=== PATIENT | male | born 1950 | race Two or more races ===

== ENCOUNTER 2021-10-18 12:16 | Inpatient (IN) | payer OTHER ==
[~2021-10-18] VITALS: Ht 165.1 cm; Wt 86.2 kg
[2021-10-18] MEDS ORDERED: XARELTO20 MG PO (12:49)
[2021-10-18] MEDS ORDERED: PRINIVIL20 MG PO (12:49)
[2021-10-18] MEDS ORDERED: LOPRESSOR25 MG PO (12:49)
[2021-10-18] MEDS ORDERED: NEURONTIN300 MG PO (12:50)
[2021-10-18] MEDS ORDERED: LIPITOR40 M1 PO (12:50)
[2021-10-18] MEDS ORDERED: BUSPIRONE HCL30 MG PO (12:51)
[2021-10-18] MEDS ORDERED: NAMENDA10 MG PO (12:51)
[2021-10-18] MEDS ORDERED: ATIVAN0.5 M1 PO (12:52)
--- NOTE | 2021-10-18 13:04 | NUR ---
SE RECIBE PT MASCULINO DE 70 ANOS NO ESTA ALERTA Y ESTA INCONCIENTE. ACOMPANADO POR FAMILIAR QUIEN INDICA QUE MIENTRAS ESTABA EN YENIFER ZOE MEDICA EL PT DESMALLA. SE LEON S/V Y NO SE LOGRA ENCONTRAR PRECION SANGUNEA MANUAL O AUTOMATICA SE RACHEL EKG Y SE MUESTRA A DR. PEDRAZA QUIEN INDICA PASARLO A AREA DE CHEST PAIN. PT SSE UBICA EN CHEST PAIN.
--- NOTE | 2021-10-18 13:38 | NUR ---
PTE LETARGICO,NO RESPONDE NI ABRE LOS OJOS.SE LE LEON MUESTARS DE AMAYA Y SE LE ADMINISTRA MEDICAMENTO SHARAD ORDEN MEDICA.SE MANTIENE EN LA UNIDAD DE CHEST PAIN.
--- NOTE | 2021-10-18 16:35 | NUR ---
SE RECIBRE PTE EN LA UNIDAD DE CENTRO DE DOLOR DE PECHO EN EL CUBICULO #18 EN CAMA CON BARANDAS ELEVADA Y TIMBRE ACCESIBLE, PTE NO PRESNETA DOLOR AL MOMETO, PTE ALERTA Y ORIENTADO POR 3 PTE SE MANTIENE EN OBSERVACION Y BAJO TRATAMIENTO POR CAMBIOS PTE EN ESPERA DE REVALUACION. PTE CON MARIZOL GUERREROANDO NOEMINA DE COLOR AMARILLO
--- NOTE | 2021-10-18 16:39 | NUR ---
SE RECIBRE PTE EN LA UNIDAD DE CENTRO DE DOLOR DE PECHO EN EL CUBICULO #18 EN CAMA CON BARANDAS ELEVADA Y TIMBRE ACCESIBLE, PTE NO PRESNETA DOLOR AL MOMETO, PTE ALERTA AL EN PERSONA, PTE SE MANTIENE EN OBSERVACION Y BAJO TRATAMIENTO POR CAMBIOS PTE EN ESPERA DE REVALUACION. PTE CON MARIZOL GUERREROANDO SOFI DE COLOR AMARILLO
== END 2021-11-06 13:30 | DRG 854 ==
LOC: ER 12:16 → ICU-2 10-19 00:34 → MEDJ 10-19 00:34 → SEC-K 10-25 10:48 → MEDJ 10-25 10:57
PROVIDERS: Surgery; Urology; ADMIT Internal Medicine; ATTEND Internal Medicine
PROC: BW24ZZZ Computerized Tomography (CT Scan) of Chest and Abdomen (ICD-10-PCS; 2021-10-20)
PROC: 02HV33Z Insertion of Infusion Device into Superior Vena Cava, Percutaneous Approach (ICD-10-PCS; 2021-10-23)
PROC: 4A12X4Z Monitoring of Cardiac Electrical Activity, External Approach (ICD-10-PCS; 2021-10-25)
PROC: B24BZZZ Ultrasonography of Heart with Aorta (ICD-10-PCS; 2021-10-29)
PROC: 0YU54JZ Supplement Right Inguinal Region with Synthetic Substitute, Percutaneous Endoscopic Approach (ICD-10-PCS; 2021-11-03)
PROC: 0VT08ZZ Resection of Prostate, Via Natural or Artificial Opening Endoscopic (ICD-10-PCS; principal; 2021-11-03 13:00)
PROC: 0YQ54ZZ Repair Right Inguinal Region, Percutaneous Endoscopic Approach (ICD-10-PCS; 2021-11-03 13:00)
DX: A41.9 Sepsis, unspecified organism (principal); N39.0 Urinary tract infection, site not specified; N17.8 Other acute kidney failure; E87.0 Hyperosmolality and hypernatremia; N13.8 Other obstructive and reflux uropathy; K40.90 Unilateral inguinal hernia, without obstruction or gangrene, not specified as recurrent; N40.1 Benign prostatic hyperplasia with lower urinary tract symptoms; E86.0 Dehydration; R33.8 Other retention of urine; R31.9 Hematuria, unspecified; G30.8 Other Alzheimer's disease; F02.80 Dementia in other diseases classified elsewhere, unspecified severity, without behavioral disturbance, psychotic disturbance, mood disturbance, and anxiety; I48.0 Paroxysmal atrial fibrillation; Z79.01 Long term (current) use of anticoagulants; Z74.01 Bed confinement status; Z20.822 Contact with and (suspected) exposure to COVID-19

== ENCOUNTER 2021-11-09 15:22 | Emergency (ER) | payer OTHER ==
[~2021-11-09] VITALS: Ht 160 cm; Wt 81.6 kg
[~2021-11-09 15:22] MED LIST: ATIVAN0.5 M1 PO; BUSPIRONE HCL30 MG PO; LIPITOR40 M1 PO; LOPRESSOR25 MG PO; NAMENDA10 MG PO; NEURONTIN300 MG PO; PRINIVIL20 MG PO; XARELTO20 MG PO
== END 2021-11-09 16:25 | disposition home or self-care (01) ==
LOC: ER 15:22
DX: Z45.2 Encounter for adjustment and management of vascular access device (principal); G30.9 Alzheimer's disease, unspecified; F02.80 Dementia in other diseases classified elsewhere, unspecified severity, without behavioral disturbance, psychotic disturbance, mood disturbance, and anxiety; Z91.041 Radiographic dye allergy status; Z91.013 Allergy to seafood; Z79.01 Long term (current) use of anticoagulants; I10 Essential (primary) hypertension

== ENCOUNTER 2021-12-20 15:35 | Inpatient (IN) | payer OTHER ==
[~2021-12-20] VITALS: Ht 170.2 cm; Wt 90.7 kg
[2021-12-20] MEDS ORDERED: TAMS0.4C PO (15:51)
[2021-12-20] MEDS ORDERED: PROSCAR5 MG PO (15:51)
[2021-12-20] MEDS ORDERED: PEPCID40 MG PO (15:51)
[2021-12-20] MEDS ORDERED: NORVASC10 MG PO (15:51)
[2021-12-20] MEDS ORDERED: ELIQUIS5 MG PO (15:52)
[2021-12-21] MEDS ORDERED: METOPROLOL SUCC50 MG (11:17)
[2021-12-21] MEDS ORDERED: INTESTINEX680 M1 (11:17)
[2021-12-21] MEDS ORDERED: LISINOPRIL-HCT1 EAC1 (11:18)
== END 2022-01-02 14:32 | disposition home or self-care (01) | DRG 690 ==
LOC: ER 15:35 → MEDI 23:01 → MEDJ 23:01 → MEDI 12-21 04:20
PROVIDERS: ADMIT Internal Medicine; ATTEND Internal Medicine
DX: N39.0 Urinary tract infection, site not specified (principal); R31.0 Gross hematuria; I10 Essential (primary) hypertension; I48.0 Paroxysmal atrial fibrillation; G30.8 Other Alzheimer's disease; F02.80 Dementia in other diseases classified elsewhere, unspecified severity, without behavioral disturbance, psychotic disturbance, mood disturbance, and anxiety; B37.9 Candidiasis, unspecified; K59.09 Other constipation; E87.6 Hypokalemia; Z20.822 Contact with and (suspected) exposure to COVID-19

== ENCOUNTER 2022-01-20 15:17 | Outpatient (CLI) | payer OTHER ==
[~2022-01-20 15:17] MED LIST changes: +ELIQUIS5 MG PO; +INTESTINEX680 M1; +LISINOPRIL-HCT1 EAC1; +METOPROLOL SUCC50 MG; +NORVASC10 MG PO; +PEPCID40 MG PO; +PROSCAR5 MG PO; +TAMS0.4C PO
== END 2022-01-20 15:24 | disposition home or self-care (01) ==
LOC: LAB 15:17
PROVIDERS: ATTEND Urology
DX: N30.00 Acute cystitis without hematuria (principal)

== ENCOUNTER 2022-02-25 15:06 | Inpatient (IN) | payer OTHER ==
[~2022-02-25] VITALS: Ht 160 cm; Wt 72.6 kg
--- NOTE | 2022-02-25 15:44 | NUR ---
PACIENTE ALERTA Y ORIENTADO EN PERSONA Y LUGAR. SE RECIBE PACIENTE EN AMBULANCIA DE EL HOGAR. FAMILIAR REFIERE TRAER AL PACIENTE POR PROBLEMAS URINARIOS, FIEBRE Y DEBILIDAD. PACIENTE TIENE SONDA URINARIA ELIMINANDO ORINA COLOR AMARILLO INTENSO. PACIENTE TIENE BOLSA DE IRRIGACION. PACIENTE AL MOMENTO NO PRESENTA TEMPERATURA ELEVADA.
--- NOTE | 2022-02-25 17:41 | NUR ---
PACIENTE ALERTA Y ORIENTADO EN PERSONA Y LUGAR. MISS. RAMIREZ ORIENTA A PACIENTE SOBRE PROCEDIMIENTO A REALIZAR A FAMILIAR Y REFIRIO ENTENDER. REALIZA MUESTRAS DE LABORATORIO BAJO MEDIDAS ASEPTICAS. LE REALIZARON PLACA DE PECHO ORDENADA POR
--- NOTE | 2022-02-26 00:06 | NUR ---
SE RECIBE PTE DEL TURNO ANTERIOR, ALERTA, UBICADO EN JUSTIN NIVEL MAS BAJO, PIERRE DE IDENTIFICACION Y BARANDAS ELEVADAS POR PRECAUCION, EN COMPANIA DE FAMILIAR. SE OBSERVA CON BUEN PATRON RESPIRATORIO Y PIEL TIBIA AL TACTO. IV PATENTE Y NANNETTE DE EDEMA O ERITEMA CON 0.9% NSS @100ML/HR. PTE CON FONTANA CON FECHA DE 02/24/22 #16 CON EGRESO APROXIMADO DE 700ML COLOR TAYLOR TURBIO. PENDIENTE CONSULTA CON DRA Shweta MOODY. SE MANTIENE BAJO OBSERVACION.
[2022-03-01] MEDS ORDERED: ELIQUIS5 MG (10:22)
== END 2022-03-07 17:27 | disposition home or self-care (01) | DRG 690 ==
LOC: ER 15:06 → MEDI 02-26 07:45
PROVIDERS: ADMIT Internal Medicine; ATTEND Internal Medicine
PROC: BW21YZZ Computerized Tomography (CT Scan) of Abdomen and Pelvis using Other Contrast (ICD-10-PCS; principal; 2022-02-26)
PROC: 02HV33Z Insertion of Infusion Device into Superior Vena Cava, Percutaneous Approach (ICD-10-PCS; 2022-02-27)
DX: N39.0 Urinary tract infection, site not specified (principal); B96.4 Proteus (mirabilis) (morganii) as the cause of diseases classified elsewhere; G30.8 Other Alzheimer's disease; N13.9 Obstructive and reflux uropathy, unspecified; F02.80 Dementia in other diseases classified elsewhere, unspecified severity, without behavioral disturbance, psychotic disturbance, mood disturbance, and anxiety; I10 Essential (primary) hypertension; I48.0 Paroxysmal atrial fibrillation; K40.90 Unilateral inguinal hernia, without obstruction or gangrene, not specified as recurrent; Z20.822 Contact with and (suspected) exposure to COVID-19

== ENCOUNTER 2023-05-18 15:54 | Outpatient (CLI) | payer OTHER ==
[~2023-05-18 15:54] MED LIST changes: +ELIQUIS5 MG
== END 2023-05-18 15:56 | disposition home or self-care (01) ==
LOC: LAB 15:54
PROVIDERS: ATTEND Urology
DX: N39.0 Urinary tract infection, site not specified (principal)

== ENCOUNTER 2023-06-26 13:35 | Outpatient (CLI) | payer OTHER ==
[2023-06-26 14:38] LABS: HEMATOCRIT 42.9 % (39.0-48.0); HEMOGLOBIN 14.5 g/dL (13-16.00); MEAN CELL VOLUME 92.3 fL (80.0-100.00); MEAN CORPUSCULAR HEMOGLOBIN 31.3 pg (27.00-32.0); MEAN CORPUSCULAR HGB CONC 33.9 g/dl (32.0-36.0); PLATELET COUNT 186 K/uL (150-450); RED BLOOD COUNT 4.65 M/uL (4.00-6.00); RED CELL DISTRIBUTION WIDTH 13.9 % (11.5-14.5)
[2023-06-26 14:43] LABS: PH,URINE 5.5 (5.0-8.0); URINE APPEARANCE Cloudy; URINE BILIRRUBIN Negative (NEGATIVE); URINE BLOOD Large; URINE COLOR Dark Yellow; URINE GLUCOSE Negative (NEGATIVE); URINE LEUKOCYTE Small; URINE NITRATE Negative
[2023-06-26 14:46] LABS: URINE EPITHELIAL CELLS 59.6 uL (0.0-38.8); URINE RBC 2737.5 uL (0.0-20.8); URINE WBC 167.6 uL (0.0-23.2)
[2023-06-26 14:58] LABS: URINE PROTEIN 100 (NEGATIVE)
== END 2023-06-26 13:46 | disposition home or self-care (01) ==
LOC: LAB 13:35
PROVIDERS: ATTEND Urology
DX: D62 Acute posthemorrhagic anemia (principal); Z91.013 Allergy to seafood; Z91.041 Radiographic dye allergy status

== ENCOUNTER 2025-02-24 16:03 | Inpatient (IN) | payer OTHER ==
[~2025-02-24] VITALS: Ht 167.6 cm; Wt 68.0 kg
[2025-02-24] MEDS ORDERED: CEFTRIAXONE SODIUM 1,000 MG VIAL ONE (16:43)
[2025-02-24] MEDS ORDERED: CEFTRIAXONE SODIUM 1,000 MG VIAL IV ONE (16:45)
[2025-02-24 17:17] LABS: BASO % 0.2 % (0.1-1.2); EOS # 0.01 (0.04-0.54); EOS % 0.1 % (0.7-7.0); HEMATOCRIT 40.8 % (40.1-51.0); HEMOGLOBIN 13.8 g/dL (13.7-17.5); LYMPH # 0.95 (1.18-3.74); LYMPH % 10.1 % (19.3-53.1); MEAN CORPUSCULAR HEMOGLOBIN 30.9 pg (25.6-32.2); MONO # 0.93 (0.24-0.82); MONO % 9.9 % (4.7-12.5); NEUT # 7.47 (1.56-6.13); NEUT % 79.3 % (34.0-71.1); PLATELET COUNT 167 K/uL (163-369); RED BLOOD COUNT 4.47 M/uL (4.63-6.08); RED CELL DISTRIBUTION WIDTH 13.7 % (11.6-14.4)
[2025-02-24 17:24] LABS: POTASSIUM 3.79 mEq/L (3.5-5.1)
[2025-02-24 17:33] LABS: ALBUMIN 3.7 gm/dL (3.4-5.0); BILIRUBIN TOTAL 0.62 mg/dL (0.3-1.2); CALCIUM 8.4 mg/dL (8.5-10.1); CREATININE SERUM 1.11 mg/dL (0.70-1.30); GFR 64.58; TOTAL PROTEIN 7.7 gm/dL (6.4-8.2)
[2025-02-24 17:51] LABS: INFLUENZA A AG NEGATIVE (NEGATIVE); INFLUENZA B AG NEGATIVE (NEGATIVE)
[2025-02-24 17:52] LABS: COVID-19 AG POSITIVE (NEGATIVE)
[2025-02-24 19:45] LABS: PH,URINE 7.5 (5.0-8.0); URINE APPEARANCE Clear; URINE BILIRRUBIN Negative (NEGATIVE); URINE COLOR Yellow; URINE GLUCOSE Negative (NEGATIVE); URINE KETONE Negative (NEGATIVE); URINE LEUKOCYTE Small; URINE NITRATE Positive; URINE PROTEIN 30 (NEGATIVE)
[2025-02-24 19:49] LABS: URINE BACTERIA 327.9 uL (0.0-1933); URINE RBC 32.8 uL (0.0-20.8); URINE WBC 35.1 uL (0.0-23.2)
[2025-02-24 20:08] LABS: URINE BLOOD TRACE; URINE CAST 0.44 uL (0.0-1.40)
[2025-02-24] MEDS ORDERED: AMLODIPINE BESYLATE 10 MG TABLET PO SCH (20:51)
[2025-02-24] MEDS ORDERED: CEFTRIAXONE SODIUM 2,000 MG in 0.9 % SODIUM CHLORIDE 100 ML IV SCH (20:51)
[2025-02-24] MEDS ORDERED: 0.9 % SODIUM CHLORIDE 1,000 ML IV SCH (21:00)
[2025-02-24] MEDS ORDERED: ACETAMINOPHEN 500 MG GEL..CAP PO PRN (21:00)
[2025-02-24] MEDS ORDERED: CEFTRIAXONE SODIUM 2,000 MG VIAL ONE (21:28)
[2025-02-24 22:32] LABS: INR 1.09; PARTIAL THROMBOPLASTIN TIME 26.9 SECONDS (22.0-34.0); PROTHROMBIN TIME 11.8 SECONDS (9.0-11.5)
[2025-02-24 22:45] LABS: C-REACTIVE PROTEIN 1.24 MG/DL (0.00-0.29)
[2025-02-25 00:12] VITALS: BP 144/68; O2SAT 97
[2025-02-25 08:11] VITALS: BP 109/62; O2SAT 92
[2025-02-25] MEDS ORDERED: ENOXAPARIN SODIUM 40 MG/0.4 ML SYRINGE SUBCUTANEO SCH (09:00)
[2025-02-25] MEDS ORDERED: MEMANTINE HCL 10 MG TABLET PO SCH (09:00)
[2025-02-25] MEDS ORDERED: BUSPIRONE HCL 15 MG TABLET PO SCH (09:00)
[2025-02-25] MEDS ORDERED: FINASTERIDE 5 MG TABLET PO SCH (09:00)
[2025-02-25] MEDS ORDERED: TAMSULOSIN HCL 0.4 MG CAP PO SCH (09:00)
[2025-02-25] MEDS ORDERED: METOPROLOL SUCCINATE 50 MG TAB.SR.24H PO SCH (09:00)
[2025-02-25] MEDS ORDERED: FAMOTIDINE/PF 20 MG in 0.9 % SODIUM CHLORIDE 8 ML IV PUSH SCH (09:00)
[2025-02-25] MEDS ORDERED: GUAIFENESIN 200 MG/10 ML BLIST.PACK PO SCH (16:00)
[2025-02-25] MEDS ORDERED: SODIUM CHLORIDE FOR INHALATION 1 VIAL.NEB IH SCH (17:00)
[2025-02-25] MEDS ORDERED: DEXAMETHASONE SODIUM PHOSPHATE 4 MG/ML VIAL IV SCH (17:00)
[2025-02-25 17:24] VITALS: BP 128/68; O2SAT 97
[2025-02-25] MEDS ORDERED: MEROPENEM 500 MG/VIAL VIAL IV SCH (18:00)
[2025-02-26 02:49] VITALS: BP 145/76; O2SAT 93
[2025-02-26 08:56] VITALS: BP 130/67; O2SAT 98
[2025-02-26] MEDS ORDERED: POLYETHYLENE GLYCOL 3350 17 GM BLIST.PACK PO SCH (09:00)
[2025-02-26 09:27] LABS: ABG pCO2 32.8 mmHg (35-45); BASE EXCESS -0.8 mmol/l; BICARBONATE 22.3 mmol/l (23-25); SaO2 95.4 %; Tco2 23.3 mmol/l
[2025-02-26 11:28] LABS: allen test SATISFACTORY; mode ROOM AIR; o2 21 %; puncture site RADIAL LEFT
[2025-02-26 11:50] LABS: BASO % 0.1 % (0.1-1.2); HEMATOCRIT 41.2 % (40.1-51.0); HEMOGLOBIN 14.2 g/dL (13.7-17.5); LYMPH # 1.15 (1.18-3.74); LYMPH % 9.1 % (19.3-53.1); MEAN CORPUSCULAR HEMOGLOBIN 31.3 pg (25.6-32.2); MONO # 1.08 (0.24-0.82); MONO % 8.5 % (4.7-12.5); NEUT # 10.41 (1.56-6.13); NEUT % 81.9 % (34.0-71.1); PLATELET COUNT 168 K/uL (163-369); RED BLOOD COUNT 4.54 M/uL (4.63-6.08); RED CELL DISTRIBUTION WIDTH 13.3 % (11.6-14.4)
[2025-02-26 13:19] LABS: BILIRUBIN TOTAL 0.75 mg/dL (0.3-1.2); CALCIUM 8.4 mg/dL (8.5-10.1); CREATININE SERUM 0.89 mg/dL (0.70-1.30); FERRITIN 240.9 NG/ML (26-388); GFR 83.33; GLOBULINA 3.7 G/DL (2.4-3.5); POTASSIUM 3.67 mEq/L (3.5-5.1); TOTAL PROTEIN 6.7 gm/dL (6.4-8.2)
[2025-02-26 13:20] LABS: C-REACTIVE PROTEIN 8.54 MG/DL (0.00-0.29)
[2025-02-26 13:35] LABS: MYCOPLASMA PNEUMONIAE IGM NON REACTIVE (NO REACTIVE)
[2025-02-26 17:02] LABS: INR 1.06; PARTIAL THROMBOPLASTIN TIME 32.9 SECONDS (22.0-34.0); PROTHROMBIN TIME 11.5 SECONDS (9.0-11.5)
[2025-02-26 17:05] VITALS: BP 108/64; O2SAT 98
[2025-02-27 02:19] VITALS: BP 115/42; O2SAT 93
[2025-02-27 05:28] LABS: BASO % 0.1 % (0.1-1.2); HEMATOCRIT 38.5 % (40.1-51.0); LYMPH # 0.82 (1.18-3.74); LYMPH % 5.7 % (19.3-53.1); MEAN CORPUSCULAR HEMOGLOBIN 30.8 pg (25.6-32.2); MONO # 0.51 (0.24-0.82); MONO % 3.5 % (4.7-12.5); NEUT # 13.06 (1.56-6.13); NEUT % 90.4 % (34.0-71.1); PLATELET COUNT 166 K/uL (163-369); RED BLOOD COUNT 4.32 M/uL (4.63-6.08); RED CELL DISTRIBUTION WIDTH 13.2 % (11.6-14.4)
[2025-02-27 05:37] LABS: HEMOGLOBIN 13.3 g/dL (13.7-17.5)
[2025-02-27 05:57] LABS: ALBUMIN 2.7 gm/dL (3.4-5.0); BILIRUBIN TOTAL 0.46 mg/dL (0.3-1.2); CALCIUM 8.4 mg/dL (8.5-10.1); CREATININE SERUM 0.94 mg/dL (0.70-1.30); GFR 78.23; GLOBULINA 3.5 G/DL (2.4-3.5); POTASSIUM 4.16 mEq/L (3.5-5.1); TOTAL PROTEIN 6.2 gm/dL (6.4-8.2)
[2025-02-27 08:52] VITALS: BP 116/72
[2025-02-27 17:51] VITALS: BP 111/65; O2SAT 96
[2025-02-28 02:50] VITALS: BP 131/79; O2SAT 94
[2025-02-28 05:10] LABS: BASO % 0.1 % (0.1-1.2); HEMATOCRIT 39.4 % (40.1-51.0); HEMOGLOBIN 13.4 g/dL (13.7-17.5); LYMPH # 0.93 (1.18-3.74); LYMPH % 6.2 % (19.3-53.1); MEAN CORPUSCULAR HEMOGLOBIN 30.3 pg (25.6-32.2); MONO # 0.64 (0.24-0.82); MONO % 4.3 % (4.7-12.5); NEUT # 13.35 (1.56-6.13); NEUT % 88.9 % (34.0-71.1); PLATELET COUNT 182 K/uL (163-369); RED BLOOD COUNT 4.42 M/uL (4.63-6.08); RED CELL DISTRIBUTION WIDTH 13.3 % (11.6-14.4)
[2025-02-28 05:55] LABS: ALBUMIN 2.9 gm/dL (3.4-5.0); BILIRUBIN TOTAL 0.53 mg/dL (0.3-1.2); CALCIUM 8.3 mg/dL (8.5-10.1); CREATININE SERUM 0.76 mg/dL (0.70-1.30); FERRITIN 199.9 NG/ML (26-388); GFR 99.98; GLOBULINA 3.6 G/DL (2.4-3.5); POTASSIUM 4.17 mEq/L (3.5-5.1); TOTAL PROTEIN 6.5 gm/dL (6.4-8.2)
[2025-02-28 05:56] LABS: C-REACTIVE PROTEIN 1.78 MG/DL (0.00-0.29)
[2025-02-28 09:15] VITALS: BP 127/74; O2SAT 94
[2025-02-28 17:14] VITALS: BP 132/70; O2SAT 96
[2025-03-01 02:21] VITALS: BP 130/74; O2SAT 93
[2025-03-01 08:08] LABS: BASO % 0.1 % (0.1-1.2); EOS # 0.04 (0.04-0.54); EOS % 0.4 % (0.7-7.0); HEMATOCRIT 41.8 % (40.1-51.0); HEMOGLOBIN 14.1 g/dL (13.7-17.5); LYMPH # 1.88 (1.18-3.74); LYMPH % 16.8 % (19.3-53.1); MEAN CORPUSCULAR HEMOGLOBIN 31.1 pg (25.6-32.2); MONO # 1.01 (0.24-0.82); NEUT # 8.17 (1.56-6.13); NEUT % 73.1 % (34.0-71.1); PLATELET COUNT 184 K/uL (163-369); RED BLOOD COUNT 4.54 M/uL (4.63-6.08); RED CELL DISTRIBUTION WIDTH 13.4 % (11.6-14.4)
[2025-03-01 08:25] LABS: BILIRUBIN TOTAL 0.65 mg/dL (0.3-1.2); CALCIUM 8.5 mg/dL (8.5-10.1); CREATININE SERUM 0.81 mg/dL (0.70-1.30); GFR 92.9; GLOBULINA 3.6 G/DL (2.4-3.5); POTASSIUM 4.46 mEq/L (3.5-5.1); TOTAL PROTEIN 6.6 gm/dL (6.4-8.2)
[2025-03-01 08:30] LABS: FERRITIN 182.4 NG/ML (26-388)
[2025-03-01 08:32] LABS: C-REACTIVE PROTEIN 0.91 MG/DL (0.00-0.29)
[2025-03-01 09:06] VITALS: BP 170/68; O2SAT 91
[2025-03-01 09:59] VITALS: O2SAT 97
[2025-03-01 17:32] VITALS: BP 116/66; O2SAT 95
[2025-03-02 00:41] VITALS: BP 118/74
[2025-03-02 07:47] LABS: ALBUMIN 2.8 gm/dL (3.4-5.0); BILIRUBIN TOTAL 0.55 mg/dL (0.3-1.2); CALCIUM 8.5 mg/dL (8.5-10.1); CREATININE SERUM 0.84 mg/dL (0.70-1.30); FERRITIN 188.8 NG/ML (26-388); GFR 89.08; GLOBULINA 3.4 G/DL (2.4-3.5); POTASSIUM 4.54 mEq/L (3.5-5.1); TOTAL PROTEIN 6.2 gm/dL (6.4-8.2)
[2025-03-02 07:51] LABS: C-REACTIVE PROTEIN 0.64 MG/DL (0.00-0.29)
[2025-03-02 08:14] LABS: BASO % 0.3 % (0.1-1.2); EOS # 0.16 (0.04-0.54); EOS % 1.3 % (0.7-7.0); HEMATOCRIT 44.9 % (40.1-51.0); LYMPH # 1.67 (1.18-3.74); LYMPH % 14.1 % (19.3-53.1); MEAN CORPUSCULAR HEMOGLOBIN 30.7 pg (25.6-32.2); MONO # 0.87 (0.24-0.82); MONO % 7.3 % (4.7-12.5); NEUT # 9.04 (1.56-6.13); NEUT % 76.1 % (34.0-71.1); PLATELET COUNT 232 K/uL (163-369); RED BLOOD COUNT 4.89 M/uL (4.63-6.08); RED CELL DISTRIBUTION WIDTH 13.5 % (11.6-14.4)
[2025-03-02 10:12] VITALS: BP 137/85; O2SAT 98
[2025-03-02 17:50] VITALS: BP 106/61; O2SAT 98
[2025-03-03 00:47] VITALS: BP 109/68
[2025-03-03 06:15] LABS: BASO % 0.2 % (0.1-1.2); EOS # 0.27 (0.04-0.54); EOS % 2.2 % (0.7-7.0); HEMATOCRIT 43.5 % (40.1-51.0); HEMOGLOBIN 14.4 g/dL (13.7-17.5); LYMPH # 2.03 (1.18-3.74); LYMPH % 16.4 % (19.3-53.1); MEAN CORPUSCULAR HEMOGLOBIN 30.5 pg (25.6-32.2); MONO # 0.84 (0.24-0.82); MONO % 6.8 % (4.7-12.5); NEUT # 8.99 (1.56-6.13); NEUT % 72.8 % (34.0-71.1); PLATELET COUNT 238 K/uL (163-369); RED BLOOD COUNT 4.72 M/uL (4.63-6.08); RED CELL DISTRIBUTION WIDTH 13.4 % (11.6-14.4)
[2025-03-03 06:39] LABS: ALBUMIN 2.9 gm/dL (3.4-5.0); BILIRUBIN TOTAL 0.52 mg/dL (0.3-1.2); CALCIUM 8.3 mg/dL (8.5-10.1); CREATININE SERUM 0.94 mg/dL (0.70-1.30); GFR 78.23; GLOBULINA 3.7 G/DL (2.4-3.5); POTASSIUM 4.59 mEq/L (3.5-5.1); TOTAL PROTEIN 6.6 gm/dL (6.4-8.2)
[2025-03-03 08:56] VITALS: BP 116/67; O2SAT 96
[2025-03-03] MEDS ORDERED: SODIUM CHLORIDE FOR INHALATION 1 VIAL.NEB IH SCH (09:15)
== END 2025-03-03 10:58 | disposition home or self-care (01) | DRG 871 ==
LOC: ER 16:03 → MEDJ 21:02
PROVIDERS: General Practice; Internal Medicine Critical Care Medicine; Internal Medicine Infectious Disease; ADMIT Internal Medicine; ATTEND Internal Medicine
PROC: 8E0ZXY6 Isolation (ICD-10-PCS; principal; 2025-02-24)
PROC: B020ZZZ Computerized Tomography (CT Scan) of Brain (ICD-10-PCS; 2025-02-24)
PROC: BB24ZZZ Computerized Tomography (CT Scan) of Bilateral Lungs (ICD-10-PCS; 2025-02-24)
DX: A41.9 Sepsis, unspecified organism (principal); J12.82 Pneumonia due to coronavirus disease 2019; U07.1 COVID-19; J69.0 Pneumonitis due to inhalation of food and vomit; N39.0 Urinary tract infection, site not specified; N17.9 Acute kidney failure, unspecified; K56.41 Fecal impaction; D72.828 Other elevated white blood cell count; N18.9 Chronic kidney disease, unspecified; G30.8 Other Alzheimer's disease; F02.80 Dementia in other diseases classified elsewhere, unspecified severity, without behavioral disturbance, psychotic disturbance, mood disturbance, and anxiety

== ENCOUNTER 2025-03-03 18:16 | Emergency (ER) | payer OTHER ==
[~2025-03-03] VITALS: Ht 165.1 cm; Wt 59.0 kg
[2025-03-03 19:29] LABS: BASO % 0.5 % (0.1-1.2); EOS # 0.16 (0.04-0.54); EOS % 1.3 % (0.7-7.0); HEMATOCRIT 46.4 % (40.1-51.0); HEMOGLOBIN 15.7 g/dL (13.7-17.5); LYMPH # 1.42 (1.18-3.74); LYMPH % 11.1 % (19.3-53.1); MEAN CORPUSCULAR HEMOGLOBIN 30.7 pg (25.6-32.2); MONO # 0.63 (0.24-0.82); MONO % 4.9 % (4.7-12.5); NEUT # 10.26 (1.56-6.13); NEUT % 80.5 % (34.0-71.1); PLATELET COUNT 286 K/uL (163-369); RED BLOOD COUNT 5.12 M/uL (4.63-6.08); RED CELL DISTRIBUTION WIDTH 13.5 % (11.6-14.4)
[2025-03-03 20:01] LABS: ALBUMIN 3.5 gm/dL (3.4-5.0); BILIRUBIN TOTAL 0.72 mg/dL (0.3-1.2); CALCIUM 8.8 mg/dL (8.5-10.1); CREATININE SERUM 0.96 mg/dL (0.70-1.30); GFR 76.36; GLOBULINA 4.1 G/DL (2.4-3.5); POTASSIUM 4.52 mEq/L (3.5-5.1); TOTAL PROTEIN 7.6 gm/dL (6.4-8.2)
[2025-03-03 20:40] LABS: URINE APPEARANCE Clear; URINE BILIRRUBIN Negative (NEGATIVE); URINE BLOOD Large; URINE COLOR Yellow; URINE GLUCOSE Negative (NEGATIVE); URINE KETONE Trace (NEGATIVE); URINE LEUKOCYTE Trace; URINE NITRATE Negative; URINE PROTEIN Trace (NEGATIVE)
[2025-03-03 20:44] LABS: URINE BACTERIA 15.9 uL (0.0-1933); URINE EPITHELIAL CELLS 6.1 uL (0.0-38.8); URINE RBC 416.4 uL (0.0-20.8); URINE WBC 41.1 uL (0.0-23.2)
[2025-03-03 20:46] LABS: URINE CAST 0.29 uL (0.0-1.40)
== END 2025-03-03 22:28 | disposition home or self-care (01) ==
LOC: ER 18:16
PROVIDERS: General Practice
DX: R55 Syncope and collapse (principal); I11.9 Hypertensive heart disease without heart failure; Z91.041 Radiographic dye allergy status; Z91.013 Allergy to seafood; F03.90 Unspecified dementia, unspecified severity, without behavioral disturbance, psychotic disturbance, mood disturbance, and anxiety; E11.9 Type 2 diabetes mellitus without complications